=== PATIENT | female | born 1985 | race Two or more races ===

== ENCOUNTER → 2019-03-03 | Emergency (ER) | payer MEDICAID ==
[~2019-03-03] VITALS: Ht 154.9 cm; Wt 59.9 kg
[~2019-03-03] MED LIST: ALBUTEROL SULF 2.5 MG/0.5ML(0.5%) NEB SOLN NEB ONE; IPRATROPIUM BROM 0.5 MG/2.5ML INH SOL NEB ONE; methylPREDNISolone SOD SUCC 125 MG/2 ML VL IM ONE
[2019-03-04 00:14] LABS: Basophils # (auto) 0.1 uL; Basophils % (auto) 0.6 % (0.0-2.0); Eosinophils # (auto) 0.2 uL; Eosinophils % (auto) 2.1 % (0.0-7.0); Hematocrit 35.8 % (36.0-46.0); Hemoglobin 12.4 g/dL (12.2-16.2); Lymphocytes % (auto) 28.9 % (10.0-50.0); Mean Corpuscular Hemoglobin 30.4 pg (28.0-32.0); Mean Corpuscular Hgb Conc. 34.5 g/dL (32.0-36.0); Mean Corpuscular Volume 88.1 fL (80.0-100.0); Monocytes # (auto) 0.6 uL; Monocytes % (auto) 6.2 % (0.0-12.0); Neutrophils # (auto) 6.4 uL; Neutrophils % (auto) 62.2 % (37.0-80.0); Platelet Count (auto) 298 10^3/uL (140-450); Red Blood Cells 4.06 10^6/uL (4.0-5.20); Red Cell Distribution Width 13.4 % (11.8-14.3); White Blood Cell 10.3 10^3/uL (4.4-10.8)
[2019-03-04 00:27] LABS: Urine Bacteria FEW /hpf (None Seen); Urine Blood Negative /uL (Negative); Urine Mucus FEW (None Seen); Urine Specific Gravity 1.037 (1.001-1.035); Urine WBC 1 /hpf (0 - 5)
[2019-03-04 00:32] LABS: Albumin 3.4 g/dL (3.4-5.0); Anion Gap 7 (5-15); BUN/Creatinine Ratio 24.7; Blood Urea Nitrogen 18 mg/dL (7-18); Calcium 8.4 mg/dL (8.5-10.1); Carbon Dioxide 27 mmol/L (21-32); Chloride 107 mmol/L (98-107); GFR African American 117 mL/min; GFR Non-African American 96 mL/min; Glucose 114 mg/dL (74-106); Potassium 3.6 mmol/L (3.5-5.1); Sodium 141 mmol/L (136-145)
[2019-03-04 00:39] LABS: Alanine Aminotransferase 42 U/L (13-56); Alkaline Phosphatase 56 U/L (45-117); Aspartate Aminotransferase 26 U/L (15-37); Bilirubin, Total 0.3 mg/dL (0.2-1.0)
[2019-03-04 03:02] VITALS: BP 114/60
== END | disposition home or self-care (01) ==
LOC: ER 23:48
DX: R07.89 Other chest pain (principal); R06.02 Shortness of breath; R05 Cough; R53.83 Other fatigue; R07.0 Pain in throat; F17.210 Nicotine dependence, cigarettes, uncomplicated; Z90.49 Acquired absence of other specified parts of digestive tract
CPT/HCPCS: 36415; 71046; 80053; 81001; 81025; 84484; 85025; 96372

== ENCOUNTER 2019-04-03 15:52 | Emergency (ER) | payer MEDICAID ==
[~2019-04-03] VITALS: Ht 154.9 cm; Wt 68.0 kg
[2019-04-03 16:33] VITALS: BP 120/70
== END 2019-04-03 18:32 | disposition home or self-care (01) ==
LOC: ER 15:59
DX: O20.0 Threatened abortion (principal); O99.331 Smoking (tobacco) complicating pregnancy, first trimester; Z3A.01 Less than 8 weeks gestation of pregnancy
CPT/HCPCS: 36415; 76801; 84702

== ENCOUNTER 2019-11-10 14:21 | Emergency (ER) | payer MEDICAID ==
[~2019-11-10] VITALS: Ht 154.9 cm; Wt 58.5 kg
[2019-11-10] MEDS ORDERED: traMADol HCL 50 MG TAB PO ONE (18:00)
[2019-11-10 19:01] VITALS: BP 118/79
== END 2019-11-10 19:31 | disposition home or self-care (01) ==
LOC: ER 14:21
DX: S62.396A Other fracture of fifth metacarpal bone, right hand, initial encounter for closed fracture (principal); S62.614A Displaced fracture of proximal phalanx of right ring finger, initial encounter for closed fracture; F17.210 Nicotine dependence, cigarettes, uncomplicated; Z88.6 Allergy status to analgesic agent; Z90.49 Acquired absence of other specified parts of digestive tract; X58.XXXA Exposure to other specified factors, initial encounter; Y93.89 Activity, other specified; Y92.89 Other specified places as the place of occurrence of the external cause; Y99.8 Other external cause status
CPT/HCPCS: 12001; 29125; 73130

== ENCOUNTER 2020-11-10 12:03 | Emergency (ER) | payer MEDICAID ==
[~2020-11-10] VITALS: Ht 154.9 cm; Wt 49.4 kg
[2020-11-10 12:04] VITALS: BP 119/94
[2020-11-10 12:44] LABS: Urine Bacteria NONE SEEN /hpf (None Seen); Urine Blood 3+ /uL (Negative); Urine Mucus FEW (None Seen); Urine Specific Gravity 1.023 (1.001-1.035); Urine WBC 25 /hpf (0 - 5)
== END 2020-11-10 13:54 | disposition home or self-care (01) ==
LOC: ER 12:03
DX: N93.8 Other specified abnormal uterine and vaginal bleeding (principal); F17.210 Nicotine dependence, cigarettes, uncomplicated; Z32.02 Encounter for pregnancy test, result negative; Z90.49 Acquired absence of other specified parts of digestive tract
CPT/HCPCS: 36415; 81001; 81025; 84702